=== PATIENT | male | born 1965 | race Caucasian/White ===

== ENCOUNTER 2020-11-25 10:53 | Emergency (ER) | payer MEDICAID, OTHER ==
[~2020-11-25] VITALS: Ht 175.3 cm; Wt 68.5 kg
[2020-11-25] MEDS ORDERED: SODIUM CHLORIDE FLUSH 10ML SYR IVF ONE (12:00)
[2020-11-25] MEDS ORDERED: ACETAMINOPHEN 500 MG TABLET PO ONE (12:00)
[2020-11-25] MEDS ORDERED: SODIUM CHLORIDE 0.9% 1,000ML IVBOLUS ONE (12:00)
--- NOTE | 2020-11-25 12:20 | NUR ---
PT PRESENTS TO ED WITH INTERMITTENT HEADACHE X 1 MONTH. PT STATES APPROX 1 MONTH AGO HE SAW AN OPTHOMOLOGIST WHO SAID HE HAD SOME INTRAOCCULAR HEMMORHAGE, "BUT HE SAID HE WASN'T WORRIED" HAS MRI ORDERED BUT HAS NO SCHEDULED YET. PT DENIES VISUAL CHANGES/DYSFUNCTION. PT IS A&OX4, NEUROLOGICALLY INTACT. CT COMPLETED. BP AND SPO2 MONITORS IN PLACE. CALL LIGHT IN REACH. MOTHER AT BEDSIDE.
[2020-11-25] MEDS ORDERED: ACETAMINOPHEN 500 MG TABLET ONE (12:44)
[2020-11-25 12:47] LABS: BASOPHILS % (AUTO) 1 % (0-1); EOSINOPHILS % (AUTO) 0 % (1-7); LYMPHOCYTES % (AUTO) 20 % (22-44); MEAN CORPUSCULAR HEMOGLOBIN 31.6 pg (27.5-34.5); MEAN CORPUSCULAR HGB CONC 33.7 g/dL (33.2-36.2); MEAN PLATELET VOLUME 9.6 fL (7.4-10.4); MONOCYTES % (AUTO) 9 % (2-9); NEUTROPHILS % (AUTO) 69 % (42-75); PLATELET COUNT 259 x10^3/uL (130-400); RED BLOOD COUNT 3.87 x10^6/uL (4.38-5.82); RED CELL DISTRIBUTION WIDTH 12.8 % (9.4-14.8)
--- NOTE | 2020-11-25 13:17 | NUR ---
NS bolus complete, pt a&o, resps even and unlabored, nadn. up to bathroom for void, gait steady. fsbs [id number] per pt's own glucometer at this time.
--- NOTE | 2020-11-25 13:23 | NUR ---
lab at bedside for redraw
[2020-11-25 13:50] LABS: ALBUMIN 3.7 g/dL (3.4-5.0); ANION GAP 4 mmol/L (5-15); CHLORIDE 106 mmol/L (98-107); CREATININE 1.24 mg/dL (0.7-1.3)
[2020-11-25 14:11] LABS: ACETONE, SERUM Negative (Negative)
[2020-11-25 14:46] VITALS: BP 120/88
== END 2020-11-25 14:49 | disposition home or self-care (01) ==
LOC: ED 12:34
DX: E10.65 Type 1 diabetes mellitus with hyperglycemia (principal); J01.00 Acute maxillary sinusitis, unspecified; J32.0 Chronic maxillary sinusitis; R51.9 Headache, unspecified
CPT/HCPCS: 36415; 70450; 80048; 82010; 82040; 85025; 99284; J7030